=== PATIENT | male | born 1940 | race Caucasian/White ===

== ENCOUNTER 2017-07-21 08:49 | Emergency (ER) | payer BC, MEDICARE ==
--- NOTE | 2017-07-21 09:05 | Emergency Department Record ---
History of Present Illness - General Chief complaint: Extremity Problem Stated complaint: RIGHT HAND INJURY Time Seen by Provider: 07/21/17 08:57 Source: Patient Mode of Arrival: Ambulatory Limitations: No limitations - History of Present Illness Initial comments: The patient is here due to R wrist and hand pain for 5 days. He thinks he may have injured it hitting it on a door. He denies any swelling, fever, or numbness. The pain is much worse with ROM. He also feels mildly lightheaded due to the pain. There is no reported SPAIN, CP, SOB, YU, or back pain. MD Complaint: Extremity pain Onset/Timin -: Days(s) Location: Right, Hand Radiation: None Severity scale (1-10): 9 Quality: Aching Consistency: Constant - Related Data Home Medications Medication Instructions Recorded Confirmed Last Taken Aspirin [Aspir-Low] 81 mg PO DAILY 07/21/17 07/21/17 07/21/17 Finasteride [Proscar] 5 mg PO DAILY 07/21/17 07/21/17 07/21/17 Lisinopril 10 mg PO DAILY 07/21/17 07/21/17 07/21/17 [place] Fruit [S[place]] 450 mg PO DAILY 07/21/17 07/21/17 07/20/17 Previous Rx's Medication Instructions Recorded Prednisone [Prednisone 20Mg] 40 mg PO DAILY #8 tab 07/21/17 Allergies Allergy/AdvReac Type Severity Reaction Status Date / Time No Known Drug Allergies Allergy Verified 11/14/14 12:59 Travel Screening - Travel/Exposure Within Last 30 Days Have you traveled within the last 30 days?: No - Travel/Exposure Within Last Year Have you traveled outside the [place] in the last year?: No - Additonal Travel Details Have you been exposed to anyone with a communicable illness?: No - Travel Symptoms Symptom Screening: None Review of Systems Constitutional: Denies: Chills, Fever Eyes: Denies: Eye discharge Past Medical History - SOCIAL HISTORY Smoking Status: Current every day smoker Alcohol Use: None Drug Use: None - RESPIRATORY Hx Respiratory Disorders: Yes Hx COPD: Yes - CARDIOVASCULAR Hx Cardio Disorders: Yes Hx Hypertension: Yes - NEURO Hx Neuro Disorders: No - GI Hx GI Disorders: Yes Hx Rectal Bleeding: Yes ("A few years ago") - Hx Genitourinary Disorders: Yes Hx Prostate Problems: Yes (BPH) - ENDOCRINE Hx Endocrine Disorders: No - MUSCULOSKELETAL Hx Musculoskeletal Disorders: Yes Hx Arthritis: Yes Hx Osteoporosis: Yes - PSYCH Hx Psych Problems: No - HEMATOLOGY/ONCOLOGY Hx Hematology/Oncology Disorders: Yes Hx Cancer: Yes (colon) Hx Chemotherapy: No Hx Radiation Therapy: No Family Medical History Any Significant Family History?: No Hx Cancer: Father, Mother *Cancer Comment: colon cancer Hx Diabetes: Children Hx HTN: Father Physical Exam - General General Appearance: Alert, Oriented x3, Cooperative, No acute distress - Head Head exam: Atraumatic, Normocephalic, Normal inspection - Eye Eye exam: Normal appearance, PERRL - Extremities Extremities exam: Normal inspection, Tenderness (There is diffuse tenderness to the dorsal 1st MT area and dorsal wrist. There is increased pain with thumb flexion. There is a positive Lorrie's test.). negative: Full ROM Course Vital Signs 07/21/17 07/21/17 08:53 09:00 Temperature 97.6 F Pulse Rate [ 74 Pulse Ox Probe] Respiratory 16 Rate Blood Pressure 135/76 Blood Pressure 135/76 [Left Arm] Pulse Ox 96 - Reevaluation(s) Reevaluation #1: The patient is doing a lot better. The pain is improving and he denies any lightheadedness. He strongly feels the issue was due to the pain and now that he is better the sensation has resolved. He is to see his PCP next week for recheck. 07/21/17 10:28 Medical Decision Making - Data Complexity MDM Data: X-Ray Ordered and/or Reviewed - Radiology Data Radiology results: Report reviewed (R Wrist: No acute fx or dislocation.) Disposition Disposition: Discharge Clinical Impression: Wrist pain, right Disposition: Home, Self-Care Condition: (2) Stable Instructions: Arthralgia (ED) Additional Instructions: Keep the splint in place for 7 days and elevate the hand when possible. Take your home Tylenol for pain and continue the Prednisone tomorrow. Please see your PCP early next week for recheck and return to the ER for any worsening symptoms. Prescriptions: Prednisone [Prednisone 20Mg] 40 mg PO DAILY #8 tab Forms: Patient Portal Access Time of Disposition: 10:30 Quality - Quality Measures Quality Measures: N/A - Blood Pressure Screening View Details: Yes Does Patient Have Any of the Following: No Blood Pressure Classification: Pre-Hypertensive BP Reading Systolic Measurement: 129 Diastolic Measurement: 81 Screening for High Blood Pressure: < Pre-Hypertensive BP, F/U Documented > [ G8950] Pre-Hypertensive Follow-up Interventions: Referral to alternative/primary care provider.
[2017-07-21] MEDS ORDERED: ACETAMINOPHEN 325 MG TAB PO ONE (09:43)
[2017-07-21] MEDS ORDERED: METHYLPREDNISOLONE PF 125MG/VIAL IM ONE (09:43)
--- NOTE | 2017-07-21 13:00 | RADIOLOGY REPORT ---
EXAM: RIGHT WRIST HISTORY: STRAINED RIGHT WRIST USING HAMMER WITH PAIN 4-5 DAYS IN RIGHT WRIST. TECHNIQUE: Four views of the right wrist were obtained. Comparison: None. Encounter: Initial. FINDINGS: Degenerative arthritis is seen along the radial aspect of the wrist particularly at the first CMC articulation, but also elsewhere along the radial aspect of the wrist. Some osteopenia is seen likely representing osteoporosis. No definite fracture or dislocation of the right wrist identified, however, if wrist symptoms persist, a follow-up study in a week or so would be suggested to exclude a currently radiographically occult fracture. IMPRESSION: 1. PROMINENT DEGENERATIVE ARTHRITIS ALONG THE RADIAL ASPECT OF THE WRIST PARTICULARLY AT THE FIRST CMC ARTICULATION. 2. SOME OSTEOPENIA PRESUMABLY OSTEOPOROSIS. 3. NO DEFINITE FRACTURE OF THE RIGHT WRIST IDENTIFIED. JOB NUMBER: [id number] MTDD
== END 2017-07-21 10:49 | disposition home or self-care (01) ==
LOC: ER 08:49
DX: G89.11 Acute pain due to trauma (principal); M25.531 Pain in right wrist; M79.644 Pain in right finger(s); R42 Dizziness and giddiness; W22.8XXA Striking against or struck by other objects, initial encounter; I10 Essential (primary) hypertension; F17.210 Nicotine dependence, cigarettes, uncomplicated
CPT/HCPCS: 96372; 99283; 99284; J2930

== ENCOUNTER 2017-12-14 13:03 | Day surgery (SDC) | payer MEDICARE ==
[2017-12-14] MEDS ORDERED: LIDOCAINE 2% MDV (20MG/ML) 20ML VIAL IV ONE (13:04)
[2017-12-14] MEDS ORDERED: PROPOFOL 10 MG/ML VIAL IV ONE (13:04)
--- NOTE | 2017-12-15 13:20 | Operative Note ---
DATE OF SURGERY: 12/14/2017 OPERATION: Surveillance COLONOSCOPY. PREOPERATIVE DIAGNOSIS: History of colon cancer. POSTOPERATIVE DIAGNOSIS: Normal colon, normal ileocolonic anastomosis. PROCEDURE: After informed consent was obtained from the patient, he was placed in the left lateral decubitus position in the endoscopy suite, sedated and monitored by the department of anesthesia. Digital rectal exam was unremarkable. A well-lubricated [id number] colonoscope was inserted into the rectum and advanced through a shortened colon to the level of the ileocolonic anastomosis. The anastomosis, distal portion of the ileum, and remaining left colon, sigmoid colon, and rectum were unremarkable. J-turn views of the anorectum were unremarkable. The endoscope was straightened, the rectal ampulla deflated, and the endoscope was removed. RECOMMENDATIONS: The patient should resume his medications and diet. Based on his history, he should undergo repeat exam in 3 years. As always, thank you for allowing me to participate in the healthcare of your patients. CC: MD BAO Devries
== END 2017-12-14 14:36 | disposition home or self-care (01) ==
LOC: HOP 13:03
PROVIDERS: ATTEND Internal Medicine Gastroenterology
DX: Z12.11 Encounter for screening for malignant neoplasm of colon (principal); Z85.038 Personal history of other malignant neoplasm of large intestine; I10 Essential (primary) hypertension; N40.0 Benign prostatic hyperplasia without lower urinary tract symptoms

== ENCOUNTER 2018-03-02 08:52 | Emergency (ER) | payer MEDICARE ==
[2018-03-02] MEDS ORDERED: PREDNISONE 20 MG TAB PO ONE (08:59)
--- NOTE | 2018-03-02 09:07 | Emergency Department Record ---
History of Present Illness - General Chief complaint: Bite Insect/other Stated complaint: LT HAND HORNET STING Time Seen by Provider: 03/02/18 08:59 Source: Patient Mode of Arrival: Ambulatory Limitations: No limitations - History of Present Illness Initial comments: 77 yo male presents with an itchy swollen left hand. He was stung by a hornet yesterday. He denies facial or oral swelling. No shortness of breath. No history of anaphylaxis. No treatment at home. He denies history of anaphylaxis. He has a chronic cough otherwise no changes from his baseline health. MD complaint: Insect bite/sting, Rash Onset/Timin -: Hour(s) Location: L hand Quality: Aching Consistency: Constant Improves with: None Worsens with: None Context: Witnessed insect bite Associated symptoms: Itching, Other Treatments Prior to Arrival: None - Related Data Home Medications Medication Instructions Recorded Confirmed Last Taken Alendronate Sodium [Fosamax] 70 mg PO WEEKLY 03/02/18 03/02/18 02/25/18 Calcium Carbonate/Vitamin D3 1 each PO DAILY 03/02/18 03/02/18 03/01/18 [Calcium 600 + Vit D Tablet] Previous Rx's Medication Instructions Recorded Diphenhydramine HCl [Benadryl] 25 mg PO Q6H #20 cap 03/02/18 Prednisone [Prednisone 20Mg] 20 mg PO BID #10 tab 03/02/18 Allergies Allergy/AdvReac Type Severity Reaction Status Date / Time No Known Drug Allergies Allergy Verified 03/02/18 09:02 Travel Screening - Travel/Exposure Within Last 30 Days Have you traveled within the last 30 days?: No - Travel/Exposure Within Last Year Have you traveled outside the [place] in the last year?: No - Additonal Travel Details Have you been exposed to anyone with a communicable illness?: No - Travel Symptoms Symptom Screening: None Review of Systems Constitutional: Denies: Chills, Fever, Malaise Eyes: Denies: Eye discharge, Vision change ENT: Denies: Congestion, Throat pain Respiratory: Denies: Cough, Dyspnea, Wheezes Cardiovascular: Denies: Chest pain, Dyspnea on exertion, Edema Endocrine: Denies: Fatigue Gastrointestinal: Denies: Abdominal pain, Nausea, Vomiting Genitourinary: Denies: Dysuria, Frequency, Hematuria Musculoskeletal: Denies: Arthralgia, Back pain, Myalgia Skin: Reports: Rash. Denies: Bruising, Change in color Neurological: Denies: Headache, Numbness, Weakness Psychiatric: Denies: Anxiety Hematological/Lymphatic: Denies: Easy bleeding, Easy bruising Past Medical History - SOCIAL HISTORY Smoking Status: Current every day smoker Alcohol Use: Rare Drug Use: None - RESPIRATORY Hx Respiratory Disorders: Yes Hx COPD: Yes - CARDIOVASCULAR Hx Cardio Disorders: Yes Hx Heart Attack: Yes ("slight heart attack" age 40's) Hx Hypertension: Yes - NEURO Hx Neuro Disorders: No - GI Hx GI Disorders: Yes Hx Rectal Bleeding: Yes (one time) Hx Wt Loss/Wt Gain: Yes (has not gain weight back since colon surgery) Hx of Polyps: Yes (large cancerous polyp, had colon resection) Comment:: diarrhea in the am since colon surgery - Hx Genitourinary Disorders: Yes Hx Prostate Problems: Yes (BPH) - ENDOCRINE Hx Endocrine Disorders: No - MUSCULOSKELETAL Hx Musculoskeletal Disorders: Yes Hx Arthritis: Yes Hx Back Injury: Yes Hx Osteoporosis: Yes - PSYCH Hx Psych Problems: No - HEMATOLOGY/ONCOLOGY Hx Hematology/Oncology Disorders: Yes Hx Cancer: Yes (colon) Hx Chemotherapy: No Hx Radiation Therapy: No Family Medical History Any Significant Family History?: No Hx Cancer: Father, Mother *Cancer Comment: father colon cancer & mother-polyps Hx Diabetes: Children Hx HTN: Father Physical Exam - General General Appearance: Alert, Oriented x3, Cooperative, No acute distress Limitations: No limitations - Head Head exam: Atraumatic, Normal inspection - Eye Eye exam: Normal appearance, Conjunctival injection - ENT ENT exam: Normal exam Ear exam: Normal external inspection Nasal Exam: Normal inspection Mouth exam: Normal external inspection - Neck Neck exam: Normal inspection. negative: Lymphadenopathy - Respiratory Respiratory exam: Normal lung sounds bilaterally. negative: Accessory muscle use, Rhonchi, Stridor, Wheezes - Cardiovascular Cardiovascular Exam: Regular rate, Normal rhythm, Normal heart sounds - GI/Abdominal GI/Abdominal exam: Soft. negative: Tenderness - Rectal Rectal exam: Deferred - exam: Deferred - Extremities Extremities exam: Full ROM, Joint swelling, Normal capillary refill. negative: Normal inspection, Tenderness Image of Hand: 1 - erythema and edema of the hand, no abnormal warmth, intact skin - Back Back exam: Denies: CVA tenderness (R), CVA tenderness (L) - Neurological Neurological exam: Alert, Oriented X3 - Psychiatric Psychiatric exam: Normal affect, Normal mood - Skin Skin exam: Dry, Intact, Normal color, Warm Course Vital Signs 03/02/18 08:55 Temperature 97.8 F Pulse Rate 59 L Respiratory 16 Rate Blood Pressure 157/84 Pulse Ox 98 - Reevaluation(s) Reevaluation #1: 03/02/18 09:07 No signs of infection or current systemic symptoms symptomatic care at home 03/02/18 10:49 No more itching. The patient is doing well and ready for DC The patient is doing well and is comfortable with DC. DC vitals were reviewed. We discussed at length reasons to immediately return to the ED as well as close follow up. The patient will call the PCP for close follow up of this ED visit to review this visit Disposition Disposition: Discharge Clinical Impression: Insect sting allergy, current reaction Qualifiers: Encounter type: initial encounter Injury intent: undetermined intent Qualified Code(s): T63.484A - Toxic effect of venom of other arthropod, undetermined, initial encounter Disposition: Home, Self-Care Condition: (1) Good Instructions: Insect Bite or Sting (ED) Additional Instructions: Ice the hand 3 times daily Return if worse, short of breath, hives or swelling Take the Prednisone twice daily for 5 days Prescriptions: Diphenhydramine HCl [Benadryl] 25 mg PO Q6H #20 cap Prednisone [Prednisone 20Mg] 20 mg PO BID #10 tab Forms: Patient Portal Access Time of Disposition: :08 Quality - Quality Measures Quality Measures: N/A - Blood Pressure Screening Does Patient Have Any of the Following: No Blood Pressure Classification: Pre-Hypertensive BP Reading Systolic Measurement: 125 Diastolic Measurement: 73 Screening for High Blood Pressure: < Pre-Hypertensive BP, F/U Documented > [ G8950] Pre-Hypertensive Follow-up Interventions: Referral to alternative/primary care provider.
== END 2018-03-02 11:01 | disposition home or self-care (01) ==
LOC: ER 08:52
DX: T63.484A Toxic effect of venom of other arthropod, undetermined, initial encounter (principal); R22.32 Localized swelling, mass and lump, left upper limb; R05 Cough; I10 Essential (primary) hypertension; I25.2 Old myocardial infarction; F17.210 Nicotine dependence, cigarettes, uncomplicated
CPT/HCPCS: 99282 ×2; J7512